=== PATIENT | female | born 1980 | race Two or more races ===

== ENCOUNTER 2016-10-20 06:04 | Emergency (ER) | payer MEDICAID ==
[~2016-10-20] VITALS: Ht 167.6 cm; Wt 95.3 kg
[2016-10-20] MEDS ORDERED: ALBUTEROL SULF 2.5 MG/0.5ML(0.5%) NEB SOLN NEB STA (06:10)
[2016-10-20 06:11] VITALS: BP 109/79
[2016-10-20] MEDS ORDERED: IPRATROPIUM BROM 0.5 MG/2.5ML INH SOL NEB ONE (06:15)
== END 2016-10-20 07:45 | disposition left against medical advice (07) ==
LOC: ER 06:17
DX: R06.02 Shortness of breath (principal); Z53.21 Procedure and treatment not carried out due to patient leaving prior to being seen by health care provider
CPT/HCPCS: 94640

== ENCOUNTER 2022-01-28 14:01 | Emergency (ER) | payer MEDICAID ==
[~2022-01-28] VITALS: Ht 165.1 cm; Wt 100.0 kg
[2022-01-28 14:22] VITALS: BP 139/99
== END 2022-01-28 17:34 | disposition left against medical advice (07) ==
LOC: ER 14:01
DX: R51.9 Headache, unspecified (principal); R11.0 Nausea; R42 Dizziness and giddiness; Z53.21 Procedure and treatment not carried out due to patient leaving prior to being seen by health care provider; W01.0XXA Fall on same level from slipping, tripping and stumbling without subsequent striking against object, initial encounter; Y93.89 Activity, other specified; Y92.89 Other specified places as the place of occurrence of the external cause; Y99.8 Other external cause status
CPT/HCPCS: 70450